=== PATIENT | male | born 1970 | race Caucasian/White ===

== ENCOUNTER 2023-09-17 07:30 | Outpatient (CLI) | payer OTHER ==
[2023-09-17 15:23] LABS: CHLAMYDIA TRACHOMATIS DNA NEGATIVE (NEGATIVE); NEISSERIA GONORRHOEAE DNA NEGATIVE (NEGATIVE); TRICHOMONAS VAGINALIS DNA NEGATIVE (NEGATIVE)
[2023-09-18 08:11] LABS: HIV SCREEN 4TH GENERATION Non Reactive (Non Reactive); HSV 2 IGG TYPE SPEC <0.91 index (0.00-0.90)
[2023-09-18 09:10] LABS: RPR Non Reactive (Non Reactive)
== END 2023-09-17 07:45 | disposition home or self-care (01) ==
LOC: LAB.N 07:30
PROVIDERS: ATTEND Physician Assistant Medical
DX: Z11.3 Encounter for screening for infections with a predominantly sexual mode of transmission (principal)
CPT/HCPCS: 36415; 86592; 86695; 86696; 86803; 87389; 87491; 87591; 87661